=== PATIENT | female | born 1990 | race African-American/Black ===

== ENCOUNTER 2025-06-07 11:05 | Outpatient (AMB) | payer OTHER, SELFPAY ==
--- NOTE | 2025-06-07 11:07 | A.OFFPC_ITS ---
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 Hypertension: - Hypertension developed with readings of 165/100 mmHg, requiring medication. - Family history of hypertension influen jaren her desire to manage the condition without long-term medication. Asthma: - Mild intermittent asthma with exacerba tions linked to environmental factors such as smoke and poor ventilation. Adjustment Disorder: - Stress from recent life changes, inclu ding a new baby and family health issues, has led to a referral for therapy. Review of Systems - Cardiovascular: Reports hyp ertension. Denies chest pain or palpitations. - Respiratory: Reports mild intermittent asthma with recent exacerbation. Denies chronic cough or hemoptysis. - Psychological: Reports stress and adju stment difficulties. Denies suicidal ideation. 10-point ROS reviewed and negative excep t as noted in HPI Past Medical History - hypertension - Asthma - Adjustment disorder Health Maintenance - Referral to behavioral [facility] for ther apy to address adjustment disorder. - Blood pressure monitoring at home with provided cuff. Physical Exam General: Well-appearing, in no acute distress, but appears tired and exhausted. Vital signs: Within normal limits. HEENT: Normocephalic, atraumatic. PERRLA, EOMI. Conjunctiva clear, sclera anicteric. Oropharynx clear, mucous membranes moist. TMs intact bilaterally. Neck: Supple, no lymphadenopathy, no thyromegaly, no JVD or carotid bruits. Cardiovascular: RRR, normal S1/S2, no murmurs, rubs, or gallops. Peripheral pulses 2+ and symmetric. No edema. Respiratory: Lungs clear to auscultation bilaterally, no wheezes, rales, or rhonchi. Normal effort. History of mild intermittent asthma, uses albuterol inhaler as needed. Abdomen: Soft, non-tender, non-distended. Normoactive bowel sounds. No hepatosplenomegaly, no masses. MSK: Full range of motion, no joint swelling or deformity. Normal gait. Skin: Warm, dry, intact. No rashes, lesions, or pallor. Neuro: Alert and oriented x3. Cranial nerves II-XII intact. Strength 5/5 throughout. Sensation intact. Reflexes 2+ symmetric. Normal coordination and gait. Psych: Appropriate mood and affect, but reports feeling stressed and exhausted. Adjustment disorder noted due to recent life changes and stressors. Normal judgment and insight. Plan 1. Hypertension - Start combination therapy with amlodip ine and valsartan, discontinue labetalol, and monitor blood pressure at home. 2. Asthma - Use albuterol inhaler as needed for sy mptom control. 3. Adjustment Disorder - Engage in therapy through behavioral [facility] services and utilize community resources for support. Discussion Notes During the consultation, we discussed the management of hypertension with a combination of amlodipine and valsartan, emphasizing the importance of blood pressure monitoring at home. We also addressed the patient's adjustment disorder, recommending therapy and community support resources. The patient was informed about the potential side effects of the new medication regimen and the need for follow-up in two weeks to evaluate blood pressure control. Additionally, we discussed the continuation of albuterol for asthma management and the importance of recognizing and avoiding triggers. Patient was informed and verbally consented to the use of an ambient scribe for clinic note documentation during this visit. Patient Instructions - Take amlodipine 5 mg and valsartan 160 mg once daily as prescribed. - Monitor your blood pressure at home an d record the readings. - Use your albuterol inhaler as needed f or asthma symptoms. - Attend therapy sessions as referred to address stress and adjustment issues. - Follow up in two weeks for blood press ure evaluation. [facility] Medical History (Updated 06/07/25 @ 11:31 by Nicho Weathers MD) Adjustment disorder with mixed anxiety and depressed mood Family History (Updated 06/07/25 @ 11:13 by Keiko Dang MA) Father High blood pressure Mother High blood pressure Social History (Updated 06/07/25 @ 11:08 by Keiko Dang MA) Housing: House Alcohol intake: current Alcohol intake frequency: does not drink Patient Tobacco Use Status: Never used Tobacco service: No Current occupational status: employed Cognitive needs: No Hearing needs: No Vision needs: No Questionnaire PHQ-9 Over the last 2 weeks, how often have you been bothered by any of the following problems? 1. Little interest or pleasure in doing things: not at all 2. Feeling down, depressed, or hopeless: not at all 3. Trouble falling or staying asleep, or sleeping too much: not at all 4. Feeling tired or having little energy: not at all 5. Poor appetite or overeating: not at all 6. Feeling bad about yourself - or that you are a failure or have let yourself or your family down: not at all 7. Trouble concentrating on things, such as reading the newspaper or watching television: not at all 8. Moving or speaking so slowly that other people could have noticed. Or the opposite - being so fidgety or restless that you have been moving around a lot more than usual: not at all 9. Thoughts that you would be better off or of hurting yourself in some way: not at all Total score: 0 Depression Screening Interpretation: Negative Depression Screening Done: Yes Source: Developed by Drs. Anders Vázquez, Janet Isabel, Artem Pretty and colleagues, with an educational alaina from [employer]. Thrive Questionnaire Date Thrive assessed: 05/31/25 I am a: Patient What is your living situation today?: I have a steady place to live Within the past 12 months, did the food you bought not last and you didn't have the money to get more?: Sometimes True Within the past 12 months, did you worry whether your food would run out before you got money to buy more?: Sometimes True Do you have trouble paying for medicines?: No Do you have trouble getting transportation to medical appointments?: No Do you have trouble paying your heating and electricity bill?: No Do you have trouble taking care of your child, family member or friend?: No Do you have trouble with day-to-day activities such as bathing, preparing meals, shopping, managing finances, etc.?: No Are you currently unemployed and looking for a job?: No Are you interested in more education?: No Please select the resources that you would like help with: Food and Childcare Currently or been in a relationship where the following occur: No concerns reported THRIVE Score: 2 AUDIT C Alcohol Use Questionnaire (AUDIT-C) 1. How often do you have a drink containing alcohol?: Never 3. How often do you have six or more drinks on one occasion?: Never Total Score: 0 LISANDRA-7 AMB Questionnaire LISANDRA-7 Date LISANDRA - 7 assessed: 06/07/25 Feeling nervous, anxious, or on edge: 1 = Several days Not being able to stop or control worryin = Several days Worrying too much about different things: 1 = Several days Trouble relaxin = Not at all Being so restless that it is hard to sit still: 0 = Not at all Becoming easily annoyed or irritable: 1 = Several days Feeling afraid as if something awful might happen: 0 = Not at all Total LISANDRA-7 score (0-4 normal; 5-9 mild; 10-14 moderate; 15-21 severe): 4 Source: Developed by Drs. Anders Vázquez, Janet Isabel, Artem Pretty and colleagues, with an educational alaina from [employer]. Physical exam (Primary Care) Tobacco/Smoking Status: Tobacco use Status Tobacco use date assessed 06/07/25 06/07/25 11:08 Patient Tobacco Use Status Never used Tobacco 06/07/25 11:08 PHQ-9: PHQ-9 Score PHQ-9: Total score 0 06/07/25 11:08 Depression Screening Interpretation: Negative Thrive Assessment: Date of Thrive Assessment Date Thrive assessed 05/31/25 06/07/25 11:08 Currently or been in a relationship where the following occur: No concerns reported Coding Level of Care Code New Pt Level 3 (98815) Diagnoses Establishing care with new doctor, encounter for Z76.89 Encounter for screening, unspecified Z13.9 Counseling, unspecified Z71.9 Screening for diabetes mellitus Z13.1 Screening for lipoid disorders Z13.220 Screening for depression Z13.31 Screening for HIV (human immunodeficiency virus) Z11.4 Routine screening for STI (sexually transmitted infection) Z11.3 Overweight (BMI 25.0-29.9) E66.3 Other secondary hypertension I15.8 Hypertension type: other secondary hypertension Adjustment disorder with mixed anxiety and depressed mood F43.23 Mild intermittent asthma J45.20 Assessment & Plan Assessment & Plan (1) Establishing care with new doctor, encounter for: Code(s): Z76.89 - Persons encountering health services in other specified circumstances (2) Encounter for screening, unspecified: Code(s): Z13.9 - Encounter for screening, unspecified (3) Counseling, unspecified: Code(s): Z71.9 - Counseling, unspecified (4) Screening for diabetes mellitus: Code(s): Z13.1 - Encounter for screening for diabetes mellitus (5) Screening for lipoid disorders: Code(s): Z13.220 - Encounter for screening for lipoid disorders (6) Screening for depression: Code(s): Z13.31 - Encounter for screening for depression (7) Screening for HIV (human immunodeficiency virus): Code(s): Z11.4 - Encounter for screening for human immunodeficiency virus [HIV] (8) Routine screening for STI (sexually transmitted infection): Code(s): Z11.3 - Encounter for screening for infections with a predominantly sexual mode of transmission (9) Overweight (BMI 25.0-29.9): Code(s): E66.3 - Overweight Category: Medical (10) Hypertension: Code(s): I10 - Essential (primary) hypertension Qualifiers: Hypertension type: other secondary hypertension Qualified Code(s): I15.8 - Other secondary hypertension (11) Adjustment disorder with mixed anxiety and depressed mood: Code(s): F43.23 - Adjustment disorder with mixed anxiety and depressed mood Category: Medical (12) Mild intermittent asthma: Code(s): J45.20 - Mild intermittent asthma, uncomplicated Plan Orders: Orders Comprehensive Met. Panel Today Z13.9 - Encounter for screening, unspecified, Z76.89 - Persons encountering health services in other specified circumstances Hemoglobin A1c Today Z13.9 - Encounter for screening, unspecified, Z76.89 - Persons encountering health services in other specified circumstances Hepatitis B Surface Antibody Today Z13.9 - Encounter for screening, unspecified, Z76.89 - Persons encountering health services in other specified circumstances Hepatitis C Antibody Today Z13.9 - Encounter for screening, unspecified, Z76.89 - Persons encountering health services in other specified circumstances HIV Ab/Ag Today Z13.9 - Encounter for screening, unspecified, Z76.89 - Persons encountering health services in other specified circumstances Lipid Panel Today Z13.9 - Encounter for screening, unspecified, Z76.89 - Persons encountering health services in other specified circumstances UA CC w/rflx Micro + Cult Today Z13.9 - Encounter for screening, unspecified, Z76.89 - Persons encountering health services in other specified circumstances Complete Blood Count Auto Diff Today Z13.9 - Encounter for screening, unspecified, Z76.89 - Persons encountering health services in other specified circumstances Hepatitis B Surface Antigen Today Z13.9 - Encounter for screening, unspecified, Z76.89 - Persons encountering health services in other specified circumstances Magnesium Today Z13.9 - Encounter for screening, unspecified, Z76.89 - Persons encountering health services in other specified circumstances Microalbumin, Random (w Creat) Today Z13.9 - Encounter for screening, unspecified, Z76.89 - Persons encountering health services in other specified circumstances Vitamin B12 and Folate Today Z13.9 - Encounter for screening, unspecified, Z76.89 - Persons encountering health services in other specified circumstances Vitamin D 1,25 dihydroxy Today Z13.9 - Encounter for screening, unspecified, Z76.89 - Persons encountering health services in other specified circumstances Referrals Behavioral Health Referral F43.23 - Adjustment disorder with mixed anxiety and depressed mood Nurse Navigator Referral F43.23 - Adjustment disorder with mixed anxiety and depressed mood Medications: New blood pressure monitor As directed 1 ea 0RF Blood pressure elevation monitoring R03.0 - Elevated blood-pressure reading, without diagnosis of hypertension amlodipine-valsartan 5-160 mg 1 tab PO DAILY 30 tabs 0RF I10 - Essential (primary) hypertension
[2025-06-07 11:10] VITALS: BP 133/84; PULSE 71; RESP 16; TEMP 36.8; O2SAT 98; BMI 29.8
--- OUTSIDE RECORDS SUMMARY | 2025-06-07 12:35 | XMS_ITS | Clinical Summary ---
Author Organization [facility] Address [address] [place] [address] Care Team Providers Care Retail Store Manager Name Role Phone Jeanne Martell MD Primary Care Provider + Source Comments PLEASE NOTE, if this patient is a minor, it may be UNLAWFUL to discuss sensitive information that is contained in these records (such as FAMILY PLANNING, MENTAL HEALTH or SUBSTANCE ABUSE) with the minor patient's parent or other person without the patient's specific authorization.[facility] Allergies Active Allergy Reactions Criticality Noted Date Comments Shellfish Containing Products Anaphylaxis,Rash,Swelling High 12/19/2015 Medications VITAMIN B COMPLEX (B COMPLEX VITAMINS ORAL) Take 1 Tab by mouth once daily. Active aspirin [address] tablet Take 1 Tablet by mouth nightly at bedtime 90 Tablet 3 10/27/19 22 Active doxylamine succinate (UNISOM) 25 mg tablet Take 1 Tablet by mouth nightly at bedtime as needed for sleep 30 Tablet 3 11/14/19 22 Active albuterol sulfate (PROAIR HFA) 90 mcg/actuation inhalerIndication s:Wheezing Inhale 2 Puffs into the lungs every 4 (four) hours as needed for shortness of breath or wheezing 8.5 g 5 02/16/20 22 Active docusate sodium (COLACE) 100 mg capsuleIndication s:Supervision of normal first , antepartum ([facility]) Take 1 Capsule by mouth 2 (two) times daily as needed for constipation 60 Capsule 5 05/01/20 22 Active vit,brianna 10-dmfs-wxisp ( LOW IRON) 27 mg iron- 1 mg tabIndications:En counter for preconception consultation Take 1 Tablet by mouth once daily 90 Tablet 3 11/15/19 23 Active ketotifen (ZADITOR) 0.025 % (0.035 %) ophthalmic solutionIndicatio ns:Seasonal allergies Place 1 Drop into both eyes 2 (two) times daily 5 mL 3 01/22/20 23 Active cetirizine (ZYRTEC) 10 mg tabletIndications :Seasonal allergies Take 1 Tablet by mouth once daily 90 Tablet 3 01/22/20 23 Active diphenhydrAMINE (BENADRYL) 25 mg capsuleIndication s:Seasonal allergies Take 1 Capsule by mouth every 6 (six) hours as needed for itching 30 Capsule 5 01/22/20 23 Active Hospital, Clinic, or Other Facility Administered Medication Ordered Dose Route Frequency Start Date End Date Status Proventil HFA 90 mcg/actuation inhaler (albuterol sulfate)Indications:W heezing 2 Puff inhl Every 4 hours PRN 02/16/2022 Active Active Problems Problem Noted Date Diagnosed Date Left hip pain 10/23/2022 Assessment & Plan (01/27/2023 3:32 PM EDT): Improved with pelvic floor PT Continue HEP Assessment & Plan (10/23/2022 2:12 PM EST): Sharp intermittent anterior left hip pain since started after having her baby 6 months ago Pain radiates to groin Pain is worse with standing up after sitting, feels like hip is displaced No known injury or trauma Exam with no TTP, full ROM, + IZABELA DDx includes labral tear, hip flexor muscle strain - daily exercise/stretching encouraged - referral to PT - tylenol/ibuprofen PRN for pain - follow up in 3 months if not improving Atypical squamous cells of u ndetermined significance on cytologic smear of cervix (ASC-US) 05/11/2022 Overview (05/28/2022): Pap 05/08/21: ASCUS, HR HPV + (from outside facility, result scanned to chart in [facility]) Did not have colpo. Pap 05/2022: NILM/ HPV negative--repeat in 1 year, 05/2023 Assessment & Plan (05/11/2022 4:58 AM EDT): Referral to internal Manager Product Support for colposcopy Scheduled next available appointment with Dr. Benjamin 08/09/22 Gestational hypertension ([facility]) 04/29/2022 hypertension ([facility]) 04/29/2022 Overview (05/11/2022): S/p 04/11/22 c/b gHTN Readmitted 04/16/22 for preE w/ SF (SRBP and WILSON unresponsive to pain medications) managed with anti-hypertensitves and magnesium, started on nifedipine 30 mg daily Nifedipine was discontinued by [facility] OB team on 05/09/22 due to BP persistently 100-110s/60-70s Assessment & Plan (05/11/2022 5:02 AM EDT): BP normotensive today off nifedipine Patient is asymptomatic Continue to monitor home BP daily Reviewed return precautions Gestational hypertension w/o significant proteinuria in 3rd trimester ([facility]) 04/11/2022 Anxiety state 12/12/2021 Inadequate housing 12/05/2021 Assessment & Plan (12/05/2021 8:42 PM EDT): Lives in 1 bedroom apt with in attic, not enough space for baby - referred to [facility] - encouraged to speak with Resource Connector today Acute midline low back pain without sciatica Assessment & Plan (12/05/2021 8:41 PM EDT): Improved after moving mattress to floor Wt gain from likely contributing No red flag symptoms - referral to PT - tylenol PRN for pain - RTC if not improving Supervision of normal first , antepartu m ([facility]) 10/26/2021 Overview (05/03/2022): Pt is 31 year old with Estimated Date of Delivery: 04/13/2022 PCP: Jeanne Martell MD provider: Shawanda Mcgowan CNM Centering? no Clinic: [facility] Language spoken: Trinidadian Pre- BMI: Body mass index is 27.42 kg/m . Accepts blood transfusions in an emergency? 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 Genetic Screen: Ethnicity: [place] Family genetic risk factors: Hgb Electrophoresis: ordered CF: neg SMA: neg FTS: see records, normal FF DNA: low risk, male AFP: Low risk survey: ordered ? TB Screen: History of positive PPD and negative CXR TB testing result and date: PPD Administered 11/08/2015 Result Recorded 11/10/2015 Induration(mm) 16 Result Positive CXR result and date: 11/11/2015 NL ? Immunization: TDAP date: 02/06/22 Flu Shot date: Covid date: desires ADAM Labor Plan: midwifery care Child Education class referral: encouraged and is participating Pain management/ plan: desires un-medicated Consent reviewed and signed: Sister/labor support: ? :? Baby sex: boy Circumcision: yes Contraception: condoms Met with Family Parking Patroller (goal 34 weeks): : yes plans to nurse Baby Caf info given: Pedi provider (Provider/Dept/Group): Car seat: VNA: Social work: consult needed: Vaccinations needed: ? labs: Labs: MBT with Rh status: No results found for: ABO No results found for: RH Antibody screen: No results found for: ABSCREEN H&H: Lab Results Component Value Date HGB 12.2 12/12/2021 HGB 12.8 11/07/2015 , Lab Results Component Value Date HCT 37.1 12/12/2021 HCT 40.2 11/07/2015 TSH: No results found for: TSH RPR: Lab Results Component Value Date RPR NON-REACTIVE 12/12/2021 RPR NON-REACTIVE 12/18/2015 HIV: No results found for: HIV HIV 4th Gen: Lab Results Component Value Date [id number] NON-REACTIVE 12/18/2015 GC/CT: Lab Results Component Value Date GC NOT DETECTED 02/07/2022 GC NOT DETECTED 12/19/2015 Lab Results Component Value Date CHLAMYDIA NOT DETECTED 02/07/2022 CHLAMYDIA NOT DETECTED 12/19/2015 Hep B S Ag: No results found for: HBSAGQL Rubella: No results found for: RUBELLA Varicella: Lab Results Component Value Date VARZOSTERIGG 1.33 12/18/2015 GLT: No results found for: FAQY3LC GBS: (date) PPD: PPD Administered 11/08/2015 Result Recorded 11/10/2015 Induration(mm) 16 Result Positive 1 hr GCT 112 12/12/21 Dysmenorrhea 12/19/2015 Encounter for routine adult health examination without abnormal findings 11/07/2015 Assessment & Plan (10/23/2022 2:04 PM EST): CPE 10/23/22 - Healthy 32 yo female - BP: 120/76 - BMI: 29 Immunizations - COVID vaccine #1 given today - Declines flu shot today Lifestyle - Discussed eating a well balanced diet including lots of fruits and veggies - Provided counseling on regular physical activity at least 5x/week for 30 minutes Reproductive Health - Pap: due 05/23/23 - STI testing: declines - Contraception: fertility awareness, pull out, abstinence; not interested in other methods at this time Risks - No alcohol, tobacco, drugs - Feels safe at home, denies IPV RTC 3 months Post-nasal drip 11/07/2015 Resolved Problems Problem Noted Date Diagnosed Date Resolved Date Acute vaginitis 07/24/2021 08/23/2021 Overview (07/24/2021): 07/24/21: Vaginal odor x 1 wk. No d/c. Saline wet mount w/ scattered clue cells - Rx Flagyl 500 BID x 7d. Counseled to avoid EtOH Immunizations Immunization Administration Dates Next Due DTAP (DAPTACEL),5 PERTUSSIS ANTIGENS ,11/14/1994,1992,1992,1992 Hep B, Adult/Adol (ZQTEDEQ-C-YZVMI/RECOMBIVAX-ADULT) 10/01/2014,02/25/2014,11/19/2013 MMR (MMR II/Priorix) 12/19/2015,04/23/2012 Moderna COVID-19 Vaccine, re d cap blue label, 12+ Primary Series 10/23/2022 OPV, Trivalent 04/23/2012, 5,08/16/1993,1992,1992 PPD 11/08/2015 TDAP 02/06/2022 Family History Medical History Relation Name Comments Hypertension Father Cancer Maternal Grandfather Hypertension Maternal Grandmother Kidney disease Maternal Grandmother Hypertension Mother Cancer Paternal Grandfather Relation Name Status Comments Father Alive Maternal Grandfather Alive Maternal Grandmother Alive Mother Alive Paternal Grandfather Alive Paternal Grandmother Alive Son Alive Social History Tobacco Use Types Packs/Day Years Used Date Smoking Tobacco: Never Smokeless Tobacco: Never Tobacco Cessation:Counseling Given: Not Answered Alcohol Use Standard Drinks/Week Comments No 0 (1 standard drink = 0.6 oz pur e alcohol) Social Connections Answer Date Recorded Connectedness 0 05/16/2024 Financial Resource Strain Answer Date R ecorded Financial Resource Strain 0 2022 Stress Answer Date Recorded Stress 0 07/24/2021 Physical Activity Answer Date Recorded Physical Activity 0 07/24/2021 Food Insecurity Answer Date Recorded Food 0 01/21/2023 Transportation Needs Answer Date Record ed Transportation 0 01/21/2023 Housing Stability Answer Date Recorded Housing 0 01/21/2023 Safety and Environment Answer Date Black rded Safety 0 07/24/2021 Utilities Answer Date Recorded Utilities 0 01/21/2023 Employment Answer Date Recorded Stress 0 01/21/2023 Comments Unknown Sex and Gender Information Value Date Recorded Sex Assigned at Female 10/31/2021 7:34 AM PST Legal Sex Female 9:41 AM PST Gender Identity Female 10/31/2021 7:34 AM PST Sexual Orientation Straight 10/31/2021 7: 34 AM PST Last Filed Vital Signs Vital Sign Reading Time Taken Comments Blood Pressure 121/75 01/21/2023 6:37 PM EDT Pulse 78 01/21/2023 6:37 PM EDT Temperature 36.7 C (98 F) 02/16/2022 10:06 AM EDT Respiratory Rate 20 12/19/2015 11:0 2 AM EDT Oxygen Saturation 95% 01/21/2023 6:37 PM EDT Inhaled Oxygen Concentration - - Weight 76.6 kg (168 lb 12.8 oz) 01/21/2023 6:37 PM EDT Height 165.1 cm (5' 5 ) 10/23/2022 10:4 7 AM EST Body Mass Index 28.09 10/23/2022 10:47 AM EST Plan of Treatment Health Maintenance Due Date Last Done Comments Anxiety Screening 1992 HPV Screening 1992 Relationship Safety Screening/Counseling 2007 Tobacco Screening 12/18/2016 12/19/2015, 11/07/2015 Imm-HPV (2 - 3-dose SCDM series) 08/28/2021 07/31/20 21 Annual Wellness (Adult): Indicated (All Coverage) 10/23/2023 10/23/2022, 12/19/2015, 11/07/2015 Hypertension Screening (#1) 01/21/2024 Alcohol and Drug Screen 09/09/2024 01/21/2023, 12/05 Depression Annual Screen 09/09/2024 [id number] ( season) 2025 023 Imm-Influenza (#1) 2025 11/10/2020 Pap Smear 05/23/2025 05/23/2022 Cervical Cancer Screening 05/23/2027 Pap + HPV 05/23/2027 05/23/2022 Imm-DTaP/Tdap/Td (9 - Td or Tdap) 09/10/2033 09/10/2023, 02/06/2022, 09/30/2020, Additional history exists Imm-Hepatitis B Completed 09/30/2020, 09/10, 02/25/2014, Additional history exists Hepatitis C Screening Completed 04/10/2022, 022 HIV Screening Completed 10/29/2023, 10/11, 12/18/2015 Syphilis Screening Discontinued 11/30/2023, 0 12/12/2021, 12/18/2015 Cervical Ablation/Cold-Knife Conization Discontinued Cervical Cryotherapy Discontinued Colposcopy Discontinued Endometrial Biopsy Discontinued Excision/Leep Discontinued HPV Genotyping Discontinued Vaginal Pap Discontinued Vulvoscopy Discontinued Procedures Procedure Name Priority Date/Time Associated Diagnosis Comments THIN PREP IMAGE PAP + HPV RNA (Q) Routine 05/23/2022 9:49 AM EDT Encounter for visit RPR W/RFLX TITER+FTA+CONF Routine 12/12/2021 11:14 AM EDT Supervision of normal first , antepartum HIV 1/2 AG & AB W/RFLX (4TH GEN) Routine 12/18/2015 8:00 PM EDT Routine screening for STI (sexually transmitted infection) from Last 3 Months or Most Recently Relevant to Health Maintenance Results * Thinprep PAP w/ HPV (05/23/2022 9:49 AM EDT) CLINICAL INFORMATION SEE NOTE [facility] Comment:Routine exam LMP SEE NOTE [facility]) Comment:[id number] PREV. PAP SEE NOTE [facility]) Comment:NONE GIVEN PREV. BX SEE NOTE [facility]) Comment:NONE GIVEN SOURCE SEE NOTE [facility]) Comment:Cervix STATEMENT OF ADEQUACY SEE NOTE [facility]) Comment: Satisfactory for evaluation. Endocervical/transformation zone component present. INTERPRETATION/RESU LT SEE NOTE [facility]) Comment:Negative for intraep ithelial lesion or malignancy. COMMENT SEE NOTE [facility]) Comment: This Pap test has been evaluated with computer assisted technology. SPLITTING MACHINE FEEDER SEE NOTE [facility] Comment: SXA, CT(ASCP) CT screening location: [place] [address] COMMENT SEE NOTE [facility]) Comment: EXPLANATORY NOTE: The Pap is a screening test for cervical cancer. It is not a diagnostic test and is subject to false negative and false positive results. It is most reliable when a satisfactory sample, regularly obtained, is submitted with relevant clinical findings and history, and when the Pap result is evaluated along with historic and current clinical information. HPV MRNA E6/E7 Not Detected Not Detected [facility] Comment: Methodology: Receptionist Doctor'S Office-Mediated Amplification This assay detects E6/E7 viral messenger RNA (mRNA) from 14 high-risk HPV types (16,18,31,33,35,39,45,51,52,56,58,59,66,68). Cervical sources are required for HPV testing. If a vaginal source from a patient who has had a total hysterectomy with removal of cervix was submitted, please contact the testing laboratory for alternative testing options. For additional information, please refer to http://education.BeanJockey/faq/WTC604y3 (This link if provided for information/ educational purposes only.) CYTOLOGY Cervix uteri structure / Unknown 05/23/2022 9:49 AM EDT 05/23/2022 10:38 AM EDT Narrative [facility]) - 05/25/2022 4:06 PM EDT [facility] Testing performed at: 2, [facility], [address] [place] [address], [address], [place], [address], Preanalytics Team Lead: Keon Cunningham [facility] Collection Date/Time: [facility] Results Received Date/Time: [facility] Reported Date/Time: Gestational Age (if ): 39w5d Patient's last menstrual period was 07/07/2021. Mervat Borges MD LAB - PATHOLOGY AND CYTOLO GY AMBULATORY Final Result [facility]) [address] CLIA #[id number] [place] [address], * RPR Screen with Reflex (12/12/2021 11:14 AM EDT) RPR (DX) W/REFL TITER AND CONFIRMATORY TESTING NON-REACT HERMINIA NON-REACT HERMINIA [facility]) Blood Blood / Unknown 12/12/2021 1 1:14 AM EDT 12/12/2021 11:14 AM EDT Narrative [facility]) - 12/13/2021 1:14 PM EDT [facility] Testing performed at: NL2, [facility], [address] [facility], [address], [address], [place], [address], Preanalytics Team Lead: Keon Cunningham [facility] Collection Date/Time: [id number] [facility] Results Received Date/Time: [id number] [facility] Reported Date/Time: [id number] Has this patient had a positive Syphilis test?->No For follow up known history of positive Syphilis Shawanda Mcgowan CNM LAB - BLOOD DRAW Final Result [facility] [address] [facility] [address] CLIA #[id number] [place] [address], [place] * HIV 1/2 AG & AB W/RFLX (4TH GEN) (12/18/2015 8:00 PM EDT) HIV AG/AB, 4TH GEN NON-REACT HERMINIA NON-REACT HERMINIA [facility] Comment: A Nonreactive HIV Ag/Ab result does not exclude HIV infection since the time frame for seroconversion is variable. If acute HIV infection is suspected, a HIV-1 RNA Qualitative TMA test is recommended. PLEASE NOTE: This information has been disclosed to you from records whose confidentiality may be protected by state law. If your state requires such protection, then the state law prohibits you from making any further disclosure of the information without the specific written consent of the person to whom it pertains, or as otherwise permitted by law. A general authorization for the release of medical or other information is NOT sufficient for this purpose. The performance of this assay has not been clinically validated in patients less than 2 years old. For additional information please refer to http://education.ConsiderC.ReplySend/faq/IFU359 (This link is being provided for informational/ educational purposes only.) Blood specimen (specimen) Blood / Unknown 12/18/2015 8:00 PM EDT 12/20/2015 6:38 AM EDT Narrative [facility] - 12/21/2015 1:30 PM EDT Performing Organization Information: [[id number]] : [facility], [address], [place] [address] Director: KEON CUNNINGHAM MD us Darline Gordon NP LAB - BLOOD DRAW Final Result [facility] [address] [address], from Last 3 Months or Most Recently Relevant to Health Maintenance Insurance [employer] NET DENTAL [employer] PLAN Member Subscriber Plan / Payer (Ef fective 2021-Present) Name:Jeffy Webster Relation to Subscriber:Self Name:Jeffy Webster Payer ID:[id number] Group ID:[id number] Type:Medicaid Address: [facility] [address] [place] [address] [facility] [place] D[place] Care Teams Retail Store Manager Relationship Specialty Start Date End Date Jeanne Martell MD [address] [place] [address] PCP - General Family Medicine, Physician 10/26/21
== END 2025-06-07 11:44 | disposition home or self-care (01) ==
LOC: HO.HMCFMS 11:05
PROVIDERS: PCP Student in an Organized Health Care Education/Training Program; Visit Provider Student in an Organized Health Care Education/Training Program
DX: J45.20 Mild intermittent asthma, uncomplicated (principal); I15.8 Other secondary hypertension; E66.3 Overweight; Z68.29 Body mass index [BMI] 29.0-29.9, adult; F43.23 Adjustment disorder with mixed anxiety and depressed mood

== ENCOUNTER 2025-06-07 11:05 | Outpatient (REF) | payer OTHER, SELFPAY ==
[2025-06-07 17:36] LABS: MANUAL DIFF FLAG NO
[2025-06-07 17:50] LABS: Hematocrit 42.2 % (37.0-47.0); Hemoglobin 13.2 g/dl (12.0-16.0); Imm Gran Abs Auto 0.01 X10*3/uL (0.00-0.03); Imm Gran Pct Auto 0.2 % (0.0-0.4); Lymphocytes Absolute Auto 2.5 X10*3/uL (1.2-4.9); Mean Corpuscular HGB Conc 31.3 g/dl (31.0-35.0); Mean Corpuscular Hemoglobin 26.3 pg (27.0-33.0); Mean Corpuscular Volume 84.1 fL (80.0-98.0); NRBC Abs Auto 0.000 X10*3/uL (0.0-0.012); NRBC Pct Auto 0.0 /100WBC (0.0-0.2); Platelet Count 362 X10*3/uL (160-400); Red Blood Count 5.02 X10*6/uL (4.20-5.50); White Blood Count 6.0 X10*3/uL (4.8-10.8)
[2025-06-07 17:53] LABS: Appearance Urine Clear; Glucose Urine UA Negative (Negative); PH 7.0 (5.0-9.0); Specific Gravity - Urine 1.015 (1.005-1.025)
[2025-06-07 18:01] LABS: Alanine Aminotransferase 69 U/L (0-31); Albumin Level 4.5 g/dL (3.5-5.0); Alkaline Phosphatase 85 U/L (39-117); Anion Gap 12 (12-20); Aspartate Amino Transferase 47 U/L (5-31); Blood Urea Nitrogen 12 mg/dL (9-16); Calcium 9.5 mg/dL (8.4-10.2); Carbon Dioxide 30 mmol/L (22-29); Chloride 105 mmol/L (96-108); Cholesterol 286 mg/dL (<200); Estimated Glomerular Filt Rate > 60; HDL Cholesterol 59 mg/dL (>40); Magnesium 2.2 mg/dL (1.6-2.6); Potassium 3.5 mmol/L (3.3-5.1); Sodium 143 mmol/L (135-145); Total Protein 7.6 g/dL (6.5-8.0); Triglycerides 126 mg/dL (<150)
[2025-06-07 18:25] LABS: Microalbum/Creatinine Ratio Ur 78.9 ug/mg cr (<30)
[2025-06-07 18:32] LABS: Folate 8.3 ng/mL (> or = 4.0); Vitamin B12 520 pg/mL (200-900)
[2025-06-08 05:26] LABS: HBS Num1 124.82 mIU/mL (0-7.99); HBsAGNum1 0.30 S/CO (0.00-0.99); HIV Num 1 0.05 S/CO (0.00-0.99); Hepatitis B Surface Antigen Negative (Negative); ~HepC Num1 0.22 S/CO (0.00-0.79); ~Hepatitis B Surface Antibody REACTIVE (Nonreactive); ~Hepatitis C Antibody Nonreactive (Nonreactive)
[2025-06-11 12:29] LABS: VITAMIN D (1,25 OH) D3 93 pg/mL; Vit D (1,25-Dihydroxy) Total 93 pg/mL (18-72); Vitamin D (1,25 OH) D2 <8 pg/mL
== END 2025-06-07 11:06 | disposition home or self-care (01) ==
LOC: HO.HKASLDS 11:05
PROVIDERS: PCP Student in an Organized Health Care Education/Training Program; Visit Provider Student in an Organized Health Care Education/Training Program
DX: Z13.9 Encounter for screening, unspecified (principal); Z76.89 Persons encountering health services in other specified circumstances; Z71.9 Counseling, unspecified; Z13.1 Encounter for screening for diabetes mellitus; Z13.220 Encounter for screening for lipoid disorders; Z13.31 Encounter for screening for depression; Z11.4 Encounter for screening for human immunodeficiency virus [HIV]; Z11.3 Encounter for screening for infections with a predominantly sexual mode of transmission; E66.3 Overweight; I15.8 Other secondary hypertension; F43.23 Adjustment disorder with mixed anxiety and depressed mood; J45.20 Mild intermittent asthma, uncomplicated; Z68.29 Body mass index [BMI] 29.0-29.9, adult
CPT/HCPCS: 36415; 80053; 80061; 81003; 82043; 82570; 82607; 82652; 82746; 83036; 83735; 85025; 86706; 86803; 87340; 87389; 99202

== ENCOUNTER 2025-06-25 10:18 | Outpatient (AMB) | payer OTHER, SELFPAY ==
[2025-06-25 10:21] VITALS: BP 131/78; PULSE 83; TEMP 36.4; O2SAT 97; BMI 30.1
--- NOTE | 2025-06-25 10:21 | A.OFFPC_ITS ---
Vital Signs 06/25/25 10:21 Height 5 ft 5.94 in Weight 186 lb 4 oz BMI 30.1 BP 131/78 Blood Pressure Location Rt brachial Position Sitting Pulse 83 Pulse Source Pulse Oximeter Temp 97.5 F Temp Source Oral Pulse Oximetry (%) 97 Oxygen Delivery Method Room Air Intake Visit Reasons: 2 week follow up RE Neonatal Icu Coordinator Required: No Accompanied by: Self / Same As Patient Allergies No Known Allergies Allergy (Verified 06/25/25 10:22) Tobacco use date assessed: 06/07/25 Dental Screening Dental Screen Date: 06/25/25 Did you have a dental visit in the last 12 months?: No Did you have a dental problem in the last 6 months where you did not have access to dental care?: No Was dental information given to patient?: Patient has dentist HPI HPI Comments History of Present Illness Details Consent Patient was informed and verbally consented to the use of an ambient scribe for clinic note documentation during this visit. History of Present Illness The patient is a 34-year-old female presenting for a follow-up visit to evaluate her antihypertensive medication's effectiveness and to address hyperlipidemia and elevated liver enzymes. Hypertension: The patient has a history of hypertension previously managed with labetalol, then changed to a combination of amlodipine and valsartan. She reported stable blood pressure with home monitoring, with an average reading of 134/83 mmHg. Hyperlipidemia: The patient was recently identified with elevated cholesterol levels. Specifically, her total cholesterol was at 286 mg/dL, and LDL cholesterol was at 202 mg/dL. Elevated Liver Enzymes: There were mild elevations in liver enzyme levels; AST was 47 and ALT was 60. This coincided with evidence of hyperlipidemia. The patient has no history of hepatitis. Somatosensory Disturbance: The patient reported an intermittent pulling sensation in her head without pain, dizziness, or nausea. The sensation occurs on the right side, lasting 5-10 seconds, and is possibly stress-related. Surgical History: - No previous surgeries reported. Medications: - Amlodipine and valsartan for postpartu m hypertension. Social History: - The patient is a mother and reported s tress related to parenting. - Discussed the importance of self-care and mental relaxation. Diagnostic Results: - Labs: Elevated total cholesterol at 28 6 mg/dL, LDL at 202 mg/dL; AST elevated at 47, ALT at 60; kidney function labs were normal. - Tests and Diagnostics: Plan for ultras ound to assess liver condition. Review of Systems - Neurological: Reports intermittent hea d pulling sensation. - Cardiovascular: Denies chest pain or d yspnea. - Respiratory: Denies cough or wheezing. - Gastrointestinal: Denies abdominal canelo n or nausea. - Musculoskeletal: Denies joint pain or swelling. 10-point ROS reviewed and negative excep t as noted in HPI Past Medical History - hypertension - Adjustment disorder Health Maintenance - Referral to a registered dietitian for lipid management. - Lifestyle modification advised for cho lesterol management. Physical Exam General: Well-appearing, in no acute distress. Vital signs: Blood pressure average 134/83, highest recorded 160/90. HEENT: Normocephalic, atraumatic. PERRLA, EOMI. Conjunctiva clear, sclera anicteric. Oropharynx clear, mucous membranes moist. TMs intact bilaterally. Neck: Supple, no lymphadenopathy, no thyromegaly, no JVD or carotid bruits. Cardiovascular: RRR, normal S1/S2, no murmurs, rubs, or gallops. Peripheral pulses 2+ and symmetric. No edema. Respiratory: Lungs clear to auscultation bilaterally, no wheezes, rales, or rho nchi. Normal effort. Abdomen: Soft, non-tender, non-distended. Normoactive bowel sounds. No hepatosplenomegaly, no masses. MSK: Full range of motion, no joint swelling or deformity. Normal gait. Skin: Warm, dry, intact. No rashes, lesions, or pallor. Neuro: Alert and oriented x3. Cranial nerves II-XII intact. Strength 5/5 throughout. Sensation intact. Reflexes 2+ symmetric. Normal coordination and gait. Reports a pulling sensation on the right side of the head, lasting 5-10 seconds, without pain or dizziness. Psych: Appropriate mood and affect. Normal judgment and insight. Adjustment disorder noted. Stress-related symptoms discussed. Plan 1. Hypertension - Continue home blood pressure monitorin g. - Maintain current regimen of amlodipine and valsartan. 2. Hyperlipidemia - Referral to a dietitian for dietary ma nagement. - Lifestyle modification advised, focusi ng on reducing dietary cholesterol. 3. Elevated Liver Enzymes - [facility]. 4. Somatosensory Disturbance - Keep a journal to monitor the pattern and frequency of symptoms. - Conservative measures include stress r eduction techniques. Discussion Notes We discussed the importance of managing hypertension with the current medication and monitoring. Given the hyperlipidemia and elevated liver enzymes, I underscored the need for dietary modifications and mentioned potential progression without intervention. I explained the connection between elevated cholesterol and liver strain, recommending an ultrasound to rule out hepatic s teatosis. Preventivation of cardiovascular complications through lifestyle changes and potentially medication. I discussed stress mitigation strategies for the somatosensory disturbance, emphasizing self-care routines. Patient Instructions continue current hypertensive medication Maintain journal for somatosensory sensations ED instructions given in case of nausea vomiting diplopia headaches diet and exercise lipid-lowering and ultrasound abdomen limited elevated liver enzymes Medical Decision Making Total time spent caring for the patient today was 30 minutes. This includes time spent before the visit reviewing the chart, time spent documenting, and time spent reviewing laboratory results, diagnostic imaging, medications, performing a medically necessary evaluation, counseling on diagnoses, care coordination, ordering appropriate tests. [facility] Medical History (Updated 06/25/25 @ 10:41 by Nicho Weathers MD) Elevated liver enzymes Adjustment disorder with mixed anxiety and depressed mood Family History Father High blood pressure Mother High blood pressure Social History Housing: House Alcohol intake: current Alcohol intake frequency: does not drink Patient Tobacco Use Status: Never used Tobacco service: No Current occupational status: employed Cognitive needs: No Hearing needs: No Vision needs: No Questionnaire Thrive Questionnaire Date Thrive assessed: 06/25/25 I am a: Patient What is your living situation today?: I have a steady place to live Within the past 12 months, did the food you bought not last and you didn't have the money to get more?: Sometimes True Within the past 12 months, did you worry whether your food would run out before you got money to buy more?: Sometimes True Do you have trouble paying for medicines?: No Do you have trouble getting transportation to medical appointments?: No Do you have trouble paying your heating and electricity bill?: No Do you have trouble taking care of your child, family member or friend?: No Do you have trouble with day-to-day activities such as bathing, preparing meals, shopping, managing finances, etc.?: No Are you currently unemployed and looking for a job?: No Are you interested in more education?: No Currently or been in a relationship where the following occur: No concerns reported THRIVE Score: 2 AUDIT C Alcohol Use Questionnaire (AUDIT-C) 1. How often do you have a drink containing alcohol?: Never 3. How often do you have six or more drinks on one occasion?: Never Total Score: 0 LISANDRA-7 AMB Questionnaire LISANDRA-7 Date LISANDRA - 7 assessed: 06/25/25 Source: Developed by Drs. Anders Vázquez, Janet Isabel, Artem Pretty and colleagues, with an educational alaina from [employer]. Physical exam (Primary Care) Vital Signs: Last Vital Signs Temp 97.5 F 06/25/25 10:21 Pulse 83 06/25/25 10:21 BP 131/78 06/25/25 10:21 Pulse Ox 97 06/25/25 10:21 Oxygen Delivery Method Room Air 06/25/25 10:21 BMI result Body Mass Index 30.1 Tobacco/Smoking Status: Tobacco use Status Tobacco use date assessed 06/07/25 06/25/25 10:28 Patient Tobacco Use Status Never used Tobacco 06/25/25 10:28 Thrive Assessment: Date of Thrive Assessment Date Thrive assessed 06/25/25 06/25/25 10:28 Currently or been in a relationship where the following occur: No concerns reported Coding Level of Care Code Est Pt Level 4 (11198) Diagnoses Elevated liver enzymes R74.8 Hypertension I10 Hyperlipidemia E78.5 Somatosensory attacks G40.89 Assessment & Plan Assessment & Plan (1) Elevated liver enzymes: Code(s): R74.8 - Abnormal levels of other serum enzymes Category: Medical (2) Hypertension: Code(s): I10 - Essential (primary) hypertension (3) Hyperlipidemia: Code(s): E78.5 - Hyperlipidemia, unspecified (4) Somatosensory attacks: Code(s): G40.89 - Other seizures Plan Orders: Orders US abdomen limited Today E78.5 - Hyperlipidemia, unspecified, R74.8 - Abnormal levels of other serum enzymes Referrals Nurse Navigator Referral E78.5 - Hyperlipidemia, unspecified
--- OUTSIDE RECORDS SUMMARY | 2025-06-25 12:15 | XMS_ITS | Clinical Summary ---
Author Organization [facility] Address [address] [place] [address] Care Team Providers Care Access Rep Name Role Phone Jeanne Martell MD Primary [...] capsuleIndication s:Supervision of normal first , antepartum Take 1 Capsule by mouth 2 (two) times daily as needed for constipation 60 Capsule 5 05/01/20 22 Active vit,brianna 60-vaoa-cyeii ( LOW IRON) 27 mg iron- 1 [...] (05/11/2022 4:58 AM EDT): Referral to internal [employer] Developer for colposcopy Scheduled next available appointment with Dr. Benjamin 08/09/22 Gestational hypertension 04/29/2022 hypertension 04/29/2022 Overview (05/11/2022): S/p 04/11/22 c/b gHTN Readmitted 04/16/22 for preE w/ SF (SRBP and WILSON unresponsive to pain medications) managed with anti-hypertensitves and magnesium, started on nifedipine 30 mg daily Nifedipine was discontinued by [facility] OB team on 05/09/22 due to BP persistently 100-110s/60-70s Assessment & Plan (05/11/2022 5:02 AM EDT): BP normotensive today off nifedipine Patient is asymptomatic Continue to monitor home BP daily Reviewed return precautions Gestational hypertension w/o significant proteinuria in 3rd trimester 04/11/2022 Anxiety state 12/12/2021 Inadequate housing 12/05/2021 [...] Supervision of normal first , antepartu m 10/26/2021 Overview (05/03/2022): Pt is 31 year old with Estimated Date of Delivery: 04/13/2022 PCP: Jeanne Martell MD provider: Shawanda Mcgowan CNM Centering? no Clinic: [facility] Language spoken: Kosovan Pre- BMI: Body mass index is 27.42 kg/m . Accepts blood transfusions in an emergency? 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 Genetic Screen: Ethnicity: [facility] Family genetic risk factors: Hgb Electrophoresis: ordered [...] Circumcision: yes Contraception: condoms Met with Family Vehicle Maintenance Technician (goal 34 weeks): : yes plans to [...] 4th Gen: Lab Results Component Value Date [id number] NON-REACTIVE 12/18/2015 GC/CT: Lab Results Component Value Date GC NOT DETECTED 02/07/2022 GC NOT DETECTED 12/19/2015 Lab Results Component Value Date CHLAMYDIA NOT DETECTED 02/07/2022 CHLAMYDIA NOT DETECTED 12/19/2015 Hep B S Ag: No results found for: HBSAGQL Rubella: No results found for: RUBELLA Varicella: Lab Results Component Value Date VARZOSTERIGG 1.33 12/18/2015 GLT: No results found for: HEKV1ZV GBS: (date) PPD: PPD Administered 11/08/2015 Result [...] (DAPTACEL),5 PERTUSSIS ANTIGENS ,11/14/1994,1992,1992,1992 Hep B, Adult/Adol ([id number]/RECOMBIVAX-ADULT) 10/01/2014,02/25/2014,11/19/2013 MMR (MMR II/Priorix) 12/19/2015,04/23/2012 Moderna COVID-19 [...] Done Comments Anxiety Screening 1992 HPV Screening (self-collect) 1992 HPV Screening 1992 Relationship Safety Screening/Counseling 2007 Tobacco Screening 12/18/2016 12/19/2015, 11/07/2015 Imm-HPV (2 - 3-dose SCDM series) 08/28/2021 07/31/20 21 Annual Wellness (Adult): Indicated (All Coverage) 10/23/2023 10/23/2022, 12/19/2015, 11/07/2015 Hypertension Screening (#1) 01/21/2024 Alcohol and Drug Screen 09/09/2024 01/21/2023, 12/05 Depression Annual Screen 09/09/2024 [id number] ( season) 2025 023 Imm-Influenza (#1) 2025 [...] Conization Discontinued Cervical Cryotherapy Discontinued Colposcopy Discontinued Excision/Leep Discontinued HPV Genotyping Discontinued Vaginal [...] EDT) CLINICAL INFORMATION SEE NOTE [facility] Comment:Routine exam LMP SEE NOTE [facility] Comment:[id number] PREV. PAP SEE NOTE [facility] Comment:NONE GIVEN PREV. BX SEE NOTE [facility] Comment:NONE GIVEN SOURCE SEE NOTE [facility] Comment:Cervix STATEMENT OF ADEQUACY SEE NOTE [facility]) Comment: Satisfactory for evaluation. Endocervical/transformation zone component present. INTERPRETATION/RESU LT SEE NOTE [facility]) Comment:Negative for intraep ithelial lesion or malignancy. COMMENT SEE NOTE [facility] Comment: This Pap test has been evaluated with computer assisted technology. QA CONSULTANT SEE NOTE [facility] Comment: SXA, CT(ASCP) CT screening location: [place] [address] COMMENT SEE NOTE [email or web address] Comment: EXPLANATORY NOTE: The Pap is a [...] E6/E7 Not Detected Not Detected [email or web address] Comment: Methodology: Beef Grinder-Mediated Amplification This assay detects E6/E7 viral messenger RNA (mRNA) from 14 high-risk HPV types (16,18,31,33,35,39,45,51,52,56,58,59,66,68). Cervical sources are required for HPV testing. If a vaginal source from a patient who has had a total hysterectomy with removal of cervix was submitted, please contact the testing laboratory for alternative testing options. For additional information, please refer to http://education.[employer] Platform/faq/BWA029u8 (This link if provided for information/ educational purposes only.) CYTOLOGY Cervix uteri structure / Unknown 05/23/2022 9:49 AM EDT 05/23/2022 10:38 AM EDT Narrative [email or web address] - 05/25/2022 4:06 PM EDT [facility] Testing performed at: [facility], [facility], [address] [place] [address], [address], [place], [address], Thread Singer: Keon Cunningham [facility] Collection Date/Time: [facility] Results Received Date/Time: [facility] Reported Date/Time: Gestational Age (if ): 39w5d Patient's last menstrual period was 07/07/2021. Mervat Borges MD LAB - PATHOLOGY AND CYTOLO GY AMBULATORY Final Result [email or web address]) [address] CLIA #[id number] [place] [address], * RPR Screen with Reflex (12/12/2021 11:14 AM EDT) RPR (DX) W/REFL TITER AND CONFIRMATORY TESTING NON-REACT HERMINIA NON-REACT HERMINIA [email or web address]) Blood Blood / Unknown 12/12/2021 1 1:14 AM EDT 12/12/2021 11:14 AM EDT Narrative [facility]) - 12/13/2021 1:14 PM EDT [facility] Testing performed at: [facility], [facility], [address] [facility], [address], [place], [address], Thread Singer: Keon Cunningham [facility] Collection Date/Time: [id number] [facility] Results Received Date/Time: [id number] [facility] Reported Date/Time: [id number] Has this patient had a positive Syphilis test?->No For follow up known history of positive Syphilis Shawanda Mcgowan CNM LAB - BLOOD DRAW Final Result [facility] [address] [facility] 3rd FLOOR CLIA #[id number] [place] [address], [place] * HIV 1/2 AG & AB W/RFLX (4TH GEN) (12/18/2015 8:00 PM EDT) HIV AG/AB, 4TH GEN NON-REACT HERMINIA NON-REACT HERMINIA [employer] Comment: A Nonreactive HIV Ag/Ab result does [...] old. For additional information please refer to http://education.Goods Platform/faq/BGS272 (This link is being provided for informational/ educational purposes only.) Blood specimen (specimen) Blood / Unknown 12/18/2015 8:00 PM EDT 12/20/2015 6:38 AM EDT Narrative [facility] - 12/21/2015 1:30 PM EDT Performing Organization Information: [[id number]] : [facility], [address], [place] [address] Director: KEON CUNNINGHAM MD us Darline Gordon NP LAB - BLOOD DRAW Final Result [facility] [address] [address], from Last 3 Months or Most Recently Relevant to Health Maintenance Insurance HEALTH SAF[employer]Y NET DENTAL PLAN Member Subscriber Plan / Payer (Ef fective 2021-Present) Name:Jeffy Webster Relation to Subscriber:Self Name:Jeffy Webster Payer ID:[id number] Group ID:[id number] Type:Medicaid Address: [address] [address] [place] [address] [facility] [place] Care Teams Access Rep Relationship Specialty Start Date End Date Jeanne Martell MD [address] [place] [address] PCP - General Family Medicine, Physician 10/26/21
== END 2025-06-25 10:48 | disposition home or self-care (01) ==
LOC: HO.HMCFMS 10:19
PROVIDERS: PCP Student in an Organized Health Care Education/Training Program; Visit Provider Student in an Organized Health Care Education/Training Program
DX: R74.8 Abnormal levels of other serum enzymes (principal); I10 Essential (primary) hypertension; E78.5 Hyperlipidemia, unspecified; G40.89 Other seizures

== ENCOUNTER → 2025-06-25 10:18 | Outpatient (BNVA) | payer OTHER, SELFPAY | PROVIDERS: PCP Student in an Organized Health Care Education/Training Program; Visit Provider Student in an Organized Health Care Education/Training Program | DX: R74.8 Abnormal levels of other serum enzymes (principal); I10 Essential (primary) hypertension; E78.5 Hyperlipidemia, unspecified; G40.89 Other seizures | CPT/HCPCS: 99212 ==

== ENCOUNTER → 2025-07-15 13:49 | Outpatient (BNVA) | payer OTHER, SELFPAY | PROVIDERS: PCP Student in an Organized Health Care Education/Training Program | DX: Z71.3 Dietary counseling and surveillance (principal) | CPT/HCPCS: 99211 ==

== ENCOUNTER 2025-09-08 11:00 | Outpatient (REF) | payer OTHER, SELFPAY ==
--- NOTE | ~2025-09-08 | US_ITS ---
EXAMINATION: US ABDOMEN LIMITED HISTORY: R74.8 - Abnormal levels of other serum enzymes TECHNIQUE: Real-time grayscale ultrasound imaging of the right upper quadrant was performed and images were reviewed. COMPARISON: There are no prior studies available for comparison. FINDINGS: Liver: The right lobe of the liver measures 15.4 cm in size. The left lobe of the liver measures 8.7 cm in size. The liver demonstrates normal homogeneous echotexture. No focal mass or intrahepatic biliary ductal dilatation is identified. There is normal hepatopedal flow in the portal vein. Gallbladder and biliary tree: The gallbladder is unremarkable, without evidence of calculi, wall thickening, or pericholecystic fluid. There is no sonographic Thibodeaux sign. The common bile duct is normal in caliber measuring 2 mm in diameter. Right Kidney: The right kidney measures 10.0 cm in length. The right kidney is unremarkable, without evidence of masses, hydronephrosis, or calculi. Pancreas: The pancreatic head, neck, and body are unremarkable. The pancreatic tail is obscured by bowel gas. Abdominal aorta and inferior vena cava: The visualized portions of the abdominal aorta and inferior vena cava are normal in caliber. There is no free fluid in the right upper quadrant. US/US abdomen limited IMPRESSION: Unremarkable right upper quadrant ultrasound. Electronically signed by: Anders Franklin MD 09/08/2025 11:37 AM EST
== END 2025-09-08 11:01 | disposition home or self-care (01) ==
LOC: HO.US 11:00
PROVIDERS: PCP Student in an Organized Health Care Education/Training Program; Visit Provider Student in an Organized Health Care Education/Training Program
DX: R74.8 Abnormal levels of other serum enzymes (principal); E78.5 Hyperlipidemia, unspecified
CPT/HCPCS: 76705

== ENCOUNTER → 2025-09-08 11:08 | Outpatient (BNV) | payer OTHER, SELFPAY | PROVIDERS: PCP Student in an Organized Health Care Education/Training Program; Visit Provider Radiology Diagnostic Radiology | DX: R74.01 Elevation of levels of liver transaminase levels (principal) | CPT/HCPCS: 76705 ==